=== PATIENT | female | born 2005 | race Caucasian/White ===

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

== ENCOUNTER 2024-08-21 23:45 | Emergency (ER) | payer OTHER ==
[2024-08-21 23:54] VITALS: BMI 50.8
[2024-08-22] MEDS ORDERED: FAMOTIDINE 20 MG/50 ML IVPB 20 MG/50 ML MG IVPB ONE (00:47)
[2024-08-22] MEDS ORDERED: MAG HYDROX/AL HYDROX/SIMETH 30 ML UNIT-DOSE CUP ONE (00:47)
[2024-08-22] MEDS: MAG HYDROX/AL HYDROX/SIMETH 30 ML UNIT-DOSE CUP PO ONE (01:26)
[2024-08-22] MEDS: FAMOTIDINE 20 MG/50 ML IVPB 20 MG/50 ML MG IVPB ONE (01:26)
[2024-08-22 01:32] LABS: BASO % 0.5 % (0-2.0); EOS % 1.1 % (0-4.5); HEMATOCRIT 41.9 % (32.4-45.2); HEMOGLOBIN 13.9 GM/dL (10.7-15.3); LYMPH % 32.6 % (8-40); MCH 28.8 pg (25.7-33.7); MCHC 33.2 g/dl (32.0-36.0); MEAN CELL VOLUME 86.6 fl (80-96); MEAN PLT VOLUME 9.6 fl (7.5-11.1); MONO % 6.3 % (3.8-10.2); NEUT % 59.5 % (42.8-82.8); PLATELET COUNT 320 10^3/uL (134-434); RBC 4.83 M/mm3 (3.60-5.2); RDW 13.2 % (11.6-15.6); WHITE BLOOD COUNT 8.2 K/mm3 (4.0-10.0)
[2024-08-22 01:39] LABS: INR 0.96 (0.83-1.09); PROTHROMBIN TIME (PATIENT) 11.1 SEC (9.7-13.0)
[2024-08-22 01:42] LABS: ACTIVATED PTT 30.8 SECONDS (25.2-36.5)
[2024-08-22 01:54] LABS: POTASSIUM 4.3 mmol/L (3.5-5.1)
[2024-08-22 01:56] LABS: ALBUMIN 3.8 g/dl (3.4-5.0); CALCIUM 9.3 mg/dL (8.5-10.1)
[2024-08-22 01:57] LABS: BLOOD UREA NITROGEN 11.8 mg/dL (7-18)
[2024-08-22 02:00] LABS: CREATININE 0.8 mg/dL (0.55-1.3)
[2024-08-22 02:01] LABS: BILIRUBIN,TOTAL 0.2 mg/dL (0.2-1); TOT PROT 7.4 g/dl (6.4-8.2)
[2024-08-22 02:04] VITALS: RESP 17; TEMP 98.2
[2024-08-22] MEDS ORDERED: KETOROLAC TROMETHAMINE 15 MG/ML VIAL ONE (02:18)
[2024-08-22] MEDS: KETOROLAC TROMETHAMINE 15 MG/ML VIAL IVPUSH ONE (02:34)
[2024-08-22 02:46] LABS: HIV INTERPRETATION NEGATIVE (NEGATIVE)
== END 2024-08-22 03:03 | disposition home or self-care (01) ==
LOC: JER 23:45
PROC: 3E033GC Introduction of Other Therapeutic Substance into Peripheral Vein, Percutaneous Approach (ICD-10-PCS; principal; 2024-08-22)
PROC: 3E0333Z Introduction of Anti-inflammatory into Peripheral Vein, Percutaneous Approach (ICD-10-PCS; 2024-08-22)
DX: R07.89 Other chest pain (principal); R10.11 Right upper quadrant pain
CPT/HCPCS: 36415; 71046-TC-FY; 76705-TC; 80053; 83690; 84484; 84703; 85025; 85379; 85610; 85730; 86803; 87389; 93005; 93010; 99285-25